=== PATIENT | female | born 1980 | race Caucasian/White ===

== ENCOUNTER 2021-01-21 14:07 | Emergency (ER) | payer OTHER ==
[2021-01-21 14:24] VITALS: BP 128/84; PULSE 74; TEMP 98.5; BMI 22.1
[2021-01-21] MEDS ORDERED: diphenhydrAMINE HCL 25 MG CAPSULE (FP) PO ONE (14:34)
[2021-01-21] MEDS ORDERED: predniSONE 20 MG TABLET (UD) PO ONE (14:34)
[2021-01-21] MEDS ORDERED: FAMOTIDINE 20 MG TABLET PO ONE (14:34)
[2021-01-21] MEDS ORDERED: diphenhydrAMINE HCL 50 MG CAPSULE ONE (14:57)
[2021-01-21] MEDS ORDERED: FAMOTIDINE 20 MG TABLET ONE (14:57)
[2021-01-21] MEDS ORDERED: predniSONE 20 MG TABLET (UD) ONE (14:57)
[2021-01-22 18:07] LABS: SARS-CoV-2 NAA Not Detected (Not Detected)
== END 2021-01-21 15:40 | disposition home or self-care (01) ==
LOC: FER 14:07
DX: R20.2 Paresthesia of skin (principal); T78.40XA Allergy, unspecified, initial encounter
CPT/HCPCS: 99283-25; C9803; U0003; U0005

== ENCOUNTER 2022-01-08 15:18 | Emergency (ER) | payer OTHER ==
[2022-01-08 15:52] VITALS: BP 128/82; PULSE 73; RESP 18; TEMP 99; BMI 21.4
== END 2022-01-08 16:38 | disposition left against medical advice (07) ==
LOC: FER 15:18
DX: R06.02 Shortness of breath (principal)
CPT/HCPCS: 0241U-QW; 71045-TC-FY; 85379; 99284-25

== ENCOUNTER 2022-08-13 19:20 | Emergency (ER) | payer BC, OTHER ==
[2022-08-13 19:24] VITALS: BP 113/72; PULSE 67; RESP 18; TEMP 98.1; BMI 22.0
[2022-08-13] MEDS ORDERED: FAMOTIDINE 20 MG TABLET ONE (20:22)
[2022-08-13] MEDS ORDERED: FAMOTIDINE 10 MG TABLET PO ONE (20:22)
[2022-08-13] MEDS: FAMOTIDINE 10 MG TABLET PO ONE ×2 (20:24→20:25)
== END 2022-08-13 21:45 | disposition home or self-care (01) ==
LOC: FER 19:20
DX: R07.89 Other chest pain (principal); R10.13 Epigastric pain
CPT/HCPCS: 36415; 82550; 84484; 93005; 93010; 99284-25